=== PATIENT | female | born 1935 | race Hispanic/Latino ===

== ENCOUNTER 2017-08-05 15:24 | Observation (INO) | payer BC, MEDICARE, OTHER ==
[2017-08-05 15:38] VITALS: BMI 24.7
[2017-08-05 16:44] LABS: BASO # 0.1 K/uL (0.0-0.2); BASO % 0.4 % (0.0-2.0); EOS # 0.1 K/uL (0.0-0.7); EOS % 0.7 % (0.0-4.0); LYMPH # 2.3 K/uL (1.0-4.3); LYMPH % 17.3 % (20.0-40.0); MEAN CELL VOLUME 96.8 fL (81.0-99.0); MEAN CORPUSCULAR HEMOGLOBIN 31.4 pg (27.0-31.0); MEAN CORPUSCULAR HGB CONC 32.4 g/dL (33.0-37.0); MEAN PLATELET VOLUME 10.7 fL (7.2-11.7); MONO % 7.6 % (0.0-10.0); RED CELL DISTRIBUTION WIDTH 13.3 % (11.5-14.5); WHITE BLOOD COUNT 13.3 K/uL (4.8-10.8)
--- NOTE | 2017-08-05 16:56 | C.PDOC ---
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 As per pt, s/p colonoscopy yesterday with cecal polyp removal by . Pt sts, " was fine right after the procedure. Today AM, went to [employer] when noticed massive bleed". Pt also reports, (+) weak, dizziness. At present time, pt denies active bleeding. Otherwise, denies fever, chills, CP, SOB, dyspnea, diaphoresis, palpitation, abd. pain, N/V, back pain. Ambulate to ED for evaluation, not in nay apparent distress. Time Seen by Provider: 08/05/17 16:16 Chief Complaint (Nursing): GI Problem History Per: Patient Past Medical History Reviewed: Historical Data, Nursing Documentation, Vital Signs Vital Signs: Last Vital Signs Temp 97.2 F L 08/05/17 15:38 Pulse 67 08/05/17 15:38 Resp 18 08/05/17 15:38 BP 116/72 08/05/17 15:38 Pulse Ox 97 08/05/17 17:20 - Medical History PMH: Arthritis, Depression, HTN, Hypercholesterolemia, Pancreatitis (pancreatic cyst resected, 2007) Denies: HIV, Chronic Kidney Disease - [facility] Procedures INJECT/INFUSE NEC (08/20/14) OCCUPATIONAL THERAPY (07/26/14) PHYSICAL THERAPY NEC (07/26/14) RECREATIONAL THERAPY (07/26/14) Family History: States: Unknown Family Hx - Social History Hx Alcohol Use: No Hx Substance Use: No - Immunization History Hx Tetanus Toxoid Vaccination: No Hx Influenza Vaccination: Yes Hx Pneumococcal Vaccination: No Review Of Systems Except As Marked, All Systems Reviewed And Found Negative. Constitutional: Negative for: Fever, Chills ENT: Negative for: Ear Pain, Throat Pain Cardiovascular: Positive for: Light Headedness. Negative for: Chest Pain Respiratory: Negative for: Cough Gastrointestinal: Positive for: Rectal Pain, Other (bleeding). Negative for: Nausea, Vomiting, Abdominal Pain Genitourinary: Negative for: Dysuria, Incontinence Musculoskeletal: Negative for: Neck Pain, Back Pain Skin: Negative for: Rash Neurological: Positive for: Dizziness. Negative for: Weakness, Numbness, Altered Mental Status Physical Exam - Physical Exam Appears: Well, Non-toxic, No Acute Distress Skin: Normal Color, Warm, Dry, No Rash Eye(s): bilateral: PERRL Nose: No Flaring, No Discharge Oral Mucosa: Moist Throat: No Drooling Neck: Trachea Midline, Supple Cardiovascular: Rhythm Regular, No Murmur, No JVD Respiratory: No Decreased Breath Sounds, No Accessory Muscle Use, No Rales, No Rhonchi Gastrointestinal/Abdominal: Soft, No Tenderness, No Distention, No Guarding Rectal: Rectal Tone (normal), Other (no active bleeding noted, no lesion) Back: No CVA Tenderness Extremity: Normal ROM, No Deformity, No Swelling Neurological/Psych: Oriented x3, Normal Speech ED Course And Treatment - Laboratory Results Result Diagrams: 08/05/17 16:41 08/05/17 16:41 ECG: Interpreted By Me, Viewed By Me Interpretation Of ECG: SR@63/min, NAD, T wave inversion in AVF, T5, prolong QT, no acute ST-T changes. O2 Sat by Pulse Oximetry: 97 Pulse Ox Interpretation: Normal Progress Note: Case discussed with , OBS admission with consult of recommend now. Blood worlk review and appears normal, no evidence of anemia. case discussed with Med-on-capp and admission arranged to OBS/med-surg. Disposition - Disposition Disposition: HOSPITALIZED Disposition Time: 17:35 Condition: STABLE Forms: [facility] (Norwegian) - Clinical Impression Clinical Impression: Rectal bleeding, Complication of procedure, S/P colonoscopic polypectomy
[2017-08-05 17:03] LABS: ALKALINE PHOSPHATASE 62 U/L (38-126); ALT/SGPT 34 U/L (9-52); AST/SGOT 25 U/L (14-36); BILIRUBIN,TOTAL 0.4 mg/dL (0.2-1.3); BLOOD UREA NITROGEN 15 mg/dL (7-17); CALCIUM 8.3 mg/dl (8.6-10.4); CARBON DIOXIDE 23 mmol/L (22-30); CHLORIDE 103 mmol/L (98-107); GFR AFRICAN-AMERICAN > 60; GLUCOSE,RANDOM 130 mg/dL (65-105); POTASSIUM 3.7 mmol/L (3.6-5.2); SODIUM 137 mmol/L (132-148); TOTAL PROTEIN 7.6 g/dL (6.3-8.3)
[2017-08-05 17:05] LABS: INR 1.1
[2017-08-05] MEDS ORDERED: Moxifloxacin IV 400mg/250ml NS 400 MG/250 ML BAG IVPB SCH (19:00)
[2017-08-05] MEDS ORDERED: Moxifloxacin IV 400mg/250ml NS 0 MG/0 ML BAG IVPB ONE (19:22)
[2017-08-05] MEDS ORDERED: Moxifloxacin IV 400mg/250ml NS 400 MG/250 ML BAG IVPB ONE (19:24)
--- NOTE | 2017-08-05 19:56 | CP.PCM.CON ---
History of Present Illness - History of Present Illness History of Present Illness: INFECTIOUS DISEASE CONSULT; DICTATED; DICT. NO; [id number]. CASE DISCUSSED WITH STAFF. Past Patient History - Infectious Disease Hx of Infectious Diseases: None - Past Medical History & Family History Past Medical History?: Yes - Past Social History Smoking Status: Former Smoker - CARDIAC Hx Hypercholesterolemia: Yes Hx Hypertension: Yes - PULMONARY Hx Respiratory Disorders: No - NEUROLOGICAL Hx Neurological Disorder: No - HEENT Other/Comment: wears eye glasses - RENAL Hx Chronic Kidney Disease: No - ENDOCRINE/METABOLIC Hx Endocrine Disorders: Yes Hx Diabetes Mellitus Type 2: Yes - HEMATOLOGICAL/ONCOLOGICAL Hx Human Immunodeficiency Virus (HIV): No - INTEGUMENTARY Hx Dermatological Problems: No - MUSCULOSKELETAL/RHEUMATOLOGICAL Hx Arthritis: Yes - GASTROINTESTINAL Hx Pancreatitis: Yes (pancreatic cyst resected, 2007) - GENITOURINARY/GYNECOLOGICAL Hx Genitourinary Disorders: No - PSYCHIATRIC Hx Depression: Yes Hx Substance Use: No - SURGICAL HISTORY Hx Surgeries: Yes Hx Orthopedic Surgery: Yes (right TKR) 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 - ANESTHESIA Hx Anesthesia: No Hx Anesthesia Reactions: No Meds Allergies/Adverse Reactions: Allergies Allergy/AdvReac Type Severity Reaction Status Date / Time azithromycin [From Zithromax] Allergy Verified 08/05/17 15:37 codeine Allergy Verified 08/05/17 15:37 erythromycin base Allergy Verified 08/05/17 15:37 Penicillins Allergy Verified 08/05/17 15:37 - Medications Medications: Current Medications Citalopram Hydrobromide (Celexa) 10 mg PO DAILY [facility] Home Med (Simvastatin [Simvastatin]) 20 mg PO [facility] Moxifloxacin HCl (Avelox Iv 400mg/250ml Ns) 400 mg in 250 mls @ 167 mls/hr IVPB Q24H [facility] Last Admin: 08/05/17 19:20 Dose: 167 mls/hr Ondansetron HCl (Zofran Inj) 4 mg IVP Q6 PRN PRN Reason: Nausea/Vomiting Results - Vital Signs Recent Vital Signs: Last Vital Signs Temp 98.1 F 08/05/17 19:05 Pulse 66 08/05/17 19:05 Resp 16 08/05/17 19:05 BP 123/68 08/05/17 19:05 Pulse Ox 97 08/05/17 19:05 - Labs Result Diagrams: 08/05/17 16:41 11/18/17 16:41 Labs: Laboratory Results - last 24 hr 08/05/17 08/05/17 08/05/17 16:41 16:41 16:41 WBC 13.3 H RBC 3.82 Hgb 12.0 Hct 37.0 MCV 96.8 MCH 31.4 H MCHC 32.4 L RDW 13.3 Plt Count 185 MPV 10.7 Neut % (Auto) 74.0 Lymph % (Auto) 17.3 L [place] % (Auto) 7.6 Eos % (Auto) 0.7 Baso % (Auto) 0.4 Neut # 9.8 H Lymph # 2.3 [place] # 1.0 H Eos # 0.1 Baso # 0.1 PT 12.2 INR 1.1 APTT 29 Sodium 137 Potassium 3.7 Chloride 103 Carbon Dioxide 23 Anion Gap 14 BUN 15 Creatinine 0.9 Est GFR ( Amer) > 60 Est GFR (Non-Af Amer) > 60 Random Glucose 130 H Calcium 8.3 L Total Bilirubin 0.4 AST 25 ALT 34 Alkaline Phosphatase 62 Troponin I < 0.0120 Total Protein 7.6 Albumin 3.8 Globulin 3.8 Albumin/Globulin Ratio 1.0
[2017-08-05] MEDS ORDERED: Amikacin Sulfate 500 MG in Sodium Chloride 0.9% 250 ML IVPB ONE (20:00)
[2017-08-06 00:42] VITALS: RESP 20
--- NOTE | 2017-08-06 06:24 | CON ---
INFECTIOUS DISEASE CONSULTATION REQUESTED BY: Dr. Manzanares. REASON FOR CONSULTATION: Multiple drug allergies, rectal bleeding, status post colonoscopy 08/04/2017 HISTORY OF PRESENT ILLNESS: Patient is an 81-year-old female with a history of hypertension, hypercholesterolemia, arthritis, history of pancreatic cyst resected in 2007 and depression, who was admitted to [facility] via the emergency room because of an episode of rectal bleeding prior to admission. As per patient, the patient had a colonoscopy done yesterday with large cecal polyp removed by Dr. Grant, ball shagger. The patient states she was fine right after the procedure, but this morning when she went to [employer], she noticed an urge of going to the bathroom and had a massive bleed. Patient also reports generalized weakness and dizziness at the time. The patient denies any further bleeding, but does complain of pain right lower quadrant. The patient complains of some chills and feeling cold at present, but denies any feverish feeling, chest pain, shortness of breath, dyspnea, diaphoresis or palpitations. Patient denies any nausea or vomiting, any back pain. On admission, she was found to have a blood pressure of 116/72, with respirations of 18 and pulse of 67, pulse ox was found to be 97%. Patient was hydrated and IV antibiotics were started as noted. Patient presently on IV Avelox 400 mg once a day daily as patient was found to have leukocytosis of 13.3. Hemoglobin at present was 12.0 and 37.0 with normal coagulation profile. The patient has multiple drug allergies including PENICILLIN, ZITHROMAX, CODEINE AND ERYTHROMYCIN BASE. Infectious disease consultation requested by Dr. Chelsea Manzanares for appropriate therapy. Patient presently denies any nauseous feeling or vomiting. PAST MEDICAL HISTORY: As above, history of hypertension and hypercholesterolemia, depression, arthritis, history of pancreatic cyst, which was resected in 2007, denies HIV or chronic kidney disease. SURGICAL HISTORY: As above, history of pancreatic cyst dissected in 2007, status post colonoscopy, and cecal polyp removal at that time on 08/04/2017 in [facility]. FAMILY HISTORY: Unknown. SOCIAL HISTORY: She denies alcohol or substance abuse. IMMUNIZATIONS: She is up-to-date on influenza vaccination. Denies history of pneumococcal vaccination, or tetanus toxoid vaccination. REVIEW OF SYSTEMS: RESPIRATORY: Denies any shortness of breath or cough. CARDIOVASCULAR: Denies any chest pain, palpitation, positive for some lightheadedness, but denies any chest pain. : Unremarkable. No dysuria. No incontinence. SKIN: Negative for rash. GANG SAWYER: Positive for dizziness. Negative for any altered mental status. PHYSICAL EXAMINATION GENERAL: Patient is awake, alert, not in any acute distress. Complaining of some mild discomfort right lower quadrant. VITAL SIGNS: HEENT: Blood pressure 115/72, respirations 18, pulse 67, temperature 97.2, pulse ox is 97%. HEENT: Pupils equal, reactive to light and accommodation. Extraocular movements are full. Fundus is negative. Sclerae nonicteric. Conjunctivae normal. JVP not elevated. NECK: Appears to be supple. CARDIOVASCULAR: S1, S2, sinus tachycardia. No murmur or gallop. LUNGS: Fair air entry. ABDOMEN: Soft, mild tenderness on deep palpation in the right lower quadrant and right flank. No distention, no guarding. RECTAL: Deferred. EXTREMITIES: No cyanosis, clubbing or edema. GANG SAWYER: No gross deficits, moves all extremities. LABORATORY DATA: WBC 13.2, H&H of 12.0 and 37, platelets fine 185, creatinine 0.9, BUN 15, sodium 137, potassium 3.7. IMPRESSION: 1. Rectal bleeding, status post colonoscopy, polypectomy 08/04/2017. 2. Leukocytosis most likely reactive, to rule out sepsis. 3. History of hypertension and hypercholesterolemia. 4. Depression. PLAN: 1. Izaguirre cultures. Continue IV moxifloxacin as ordered 400 mg once a day daily, will give a stat dose of amikacin 500 mg post blood cultures as ordered. 2. Followup CBC, H&H and IV fluids as per PMD. We will follow along with you. Thank you very much for allowing me to participate in the care of your patient. Naya Parks MD
[2017-08-06 07:56] LABS: BASO # 0.1 K/uL (0.0-0.2); BASO % 0.8 % (0.0-2.0); EOS # 0.2 K/uL (0.0-0.7); EOS % 2.8 % (0.0-4.0); HEMATOCRIT 30.4 % (34.0-47.0); LYMPH % 34.7 % (20.0-40.0); MEAN CELL VOLUME 95.3 fL (81.0-99.0); MEAN CORPUSCULAR HEMOGLOBIN 32.5 pg (27.0-31.0); MEAN PLATELET VOLUME 10.5 fL (7.2-11.7); MONO # 0.9 K/uL (0.0-0.8); MONO % 10.8 % (0.0-10.0); RED CELL DISTRIBUTION WIDTH 12.9 % (11.5-14.5); WHITE BLOOD COUNT 8.6 K/uL (4.8-10.8)
[2017-08-06 08:21] LABS: BLOOD UREA NITROGEN 15 mg/dL (7-17); CALCIUM 8.1 mg/dl (8.6-10.4); CARBON DIOXIDE 28 mmol/L (22-30); CHLORIDE 103 mmol/L (98-107); CHOLESTEROL 171 mg/dL (0-199); GFR AFRICAN-AMERICAN > 60; GLUCOSE,RANDOM 90 mg/dL (65-105); POTASSIUM 3.7 mmol/L (3.6-5.2); SODIUM 136 mmol/L (132-148)
[2017-08-06 08:37] VITALS: BP 138/79; PULSE 73; TEMP 97.7; O2SAT 96
[2017-08-06 08:44] LABS: THYROID STIMULATING HORMONE 1.09 mIU/L (0.46-4.68)
[2017-08-06] MEDS ORDERED: Enoxaparin 40 mg Syringe SC SCH (10:45)
--- NOTE | 2017-08-06 10:47 | CP.PCM.CON ---
History of Present Illness - History of Present Illness History of Present Illness: Covering Dr Grant CC: Rectal Bleed HPI: 81 year old woman underwent Colonoscopy and polypectomy of large cecal polyp on 08/04, and did well after the procedure. She then passed large amount of blood per rectum at [employer] yesterday, then felt weak and dizzy and came to the ER. Hgb was 12, and patient was admitted for observation. She has not passed any further blood overnight, nor today. She denies abdominal pain, weakness, dizzines, dyspnea. Hgb today is 10. Patient called me this morning asking when she can be discharged. Patient denies ASA or NSAID use. Review of Systems - Constitutional Constitutional: Fatigue, Weakness. absent: Anorexia, Chills - EENT Eyes: absent: Change in Vision Ears: absent: Decreased Hearing - Breasts Breasts: Mass (Going for biopsy this week) - Cardiovascular Cardiovascular: absent: Chest Pain, Diaphoresis - Respiratory Respiratory: absent: Cough, Dyspnea - Gastrointestinal Gastrointestinal: Hematochezia. absent: Abdominal Pain, Dysphagia, Melena, Nausea, Vomiting - Genitourinary Genitourinary: absent: Difficulty Urinating - Musculoskeletal Musculoskeletal: absent: Back Pain - Neurological Neurological: Weakness. absent: Abnormal Hearing, Loss of Vision - Psychiatric Psychiatric: absent: Behavioral Changes, Confusion - Endocrine Endocrine: absent: Change in Body Appearance - Hematologic/Lymphatic Hematologic: absent: Easy Bleeding Past Patient History - Infectious Disease Hx of Infectious Diseases: None - Past Medical History & Family History Past Medical History?: Yes - Past Social History Smoking Status: Former Smoker Alcohol: Occasional - CARDIAC Hx Hypercholesterolemia: Yes Hx Hypertension: Yes - PULMONARY Hx Respiratory Disorders: No - NEUROLOGICAL Hx Neurological Disorder: No - HEENT Other/Comment: wears eye glasses - RENAL Hx Chronic Kidney Disease: No - ENDOCRINE/METABOLIC Hx Endocrine Disorders: Yes Hx Diabetes Mellitus Type 2: Yes - HEMATOLOGICAL/ONCOLOGICAL Hx Human Immunodeficiency Virus (HIV): No - INTEGUMENTARY Hx Dermatological Problems: No - MUSCULOSKELETAL/RHEUMATOLOGICAL Hx Falls: No - GASTROINTESTINAL Hx Pancreatitis: Yes (pancreatic cyst resected, 2007. 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 - ANESTHESIA Hx Anesthesia: No Hx Anesthesia Reactions: No Meds Allergies/Adverse Reactions: Allergies Allergy/AdvReac Type Severity Reaction Status Date / Time azithromycin [From Zithromax] Allergy Verified 08/05/17 15:37 codeine Allergy Verified 08/05/17 15:37 erythromycin base Allergy Verified 08/05/17 15:37 Penicillins Allergy Verified 08/05/17 15:37 - Medications Medications: Current Medications Citalopram Hydrobromide (Celexa) 10 mg PO DAILY [facility] Moxifloxacin HCl (Avelox Iv 400mg/250ml Ns) 400 mg in 250 mls @ 167 mls/hr IVPB Q24H [facility] Last Admin: 08/05/17 19:20 Dose: 167 mls/hr Ondansetron HCl (Zofran Inj) 4 mg IVP Q6 PRN PRN Reason: Nausea/Vomiting Pneumococcal Polyvalent Vaccine (Pneumovax 23 Vaccine) 0.5 ml IM .ONCE ONE Stop: 08/07/17 10:01 Rosuvastatin Calcium (Crestor) 5 mg PO HS [facility] Last Admin: 08/05/17 21:47 Dose: 5 mg Physical Exam - Constitutional Appears: Well, No Acute Distress - Head Exam Head Exam: ATRAUMATIC, NORMOCEPHALIC - Eye Exam Eye Exam: Normal appearance. absent: Scleral icterus - ENT Exam ENT Exam: Normal Exam - Neck Exam Neck exam: Positive for: Normal Inspection. Negative for: Thyromegaly - Respiratory Exam Respiratory Exam: Clear to Auscultation Bilateral - Cardiovascular Exam Cardiovascular Exam: REGULAR RHYTHM - GI/Abdominal Exam GI & Abdominal Exam: Normal Bowel Sounds, Soft. absent: Distended, Guarding, Mass, Tenderness - Rectal Exam Rectal Exam: Deferred - Extremities Exam Extremities exam: Positive for: normal inspection - Back Exam Back exam: NORMAL INSPECTION - Neurological Exam Neurological exam: Alert, Oriented x3 - Psychiatric Exam Psychiatric exam: Anxious, Normal Affect - Skin Skin Exam: Intact, Normal Color Results - Vital Signs Recent Vital Signs: Last Vital Signs Temp 97.7 F 08/06/17 08:35 Pulse 73 08/06/17 08:35 Resp 20 08/06/17 08:35 BP 138/79 08/06/17 08:35 Pulse Ox 96 08/06/17 08:35 - Labs Result Diagrams: 08/06/17 07:42 08/06/17 07:42 Labs: Laboratory Results - last 24 hr 08/05/17 08/05/17 08/05/17 16:41 16:41 16:41 WBC 13.3 H RBC 3.82 Hgb 12.0 Hct 37.0 MCV 96.8 MCH 31.4 H MCHC 32.4 L RDW 13.3 Plt Count 185 MPV 10.7 Neut % (Auto) 74.0 Lymph % (Auto) 17.3 L [place] % (Auto) 7.6 Eos % (Auto) 0.7 Baso % (Auto) 0.4 Neut # 9.8 H Lymph # 2.3 [place] # 1.0 H Eos # 0.1 Baso # 0.1 PT 12.2 INR 1.1 APTT 29 Sodium 137 Potassium 3.7 Chloride 103 Carbon Dioxide 23 Anion Gap 14 BUN 15 Creatinine 0.9 Est GFR ( Amer) > 60 Est GFR (Non-Af Amer) > 60 Random Glucose 130 H Hemoglobin A1c Calcium 8.3 L Total Bilirubin 0.4 AST 25 ALT 34 Alkaline Phosphatase 62 Troponin I < 0.0120 Total Protein 7.6 Albumin 3.8 Globulin 3.8 Albumin/Globulin Ratio 1.0 Triglycerides Cholesterol LDL Cholesterol Direct HDL Cholesterol TSH 3rd Generation 08/06/17 08/06/17 08/06/17 07:42 07:42 07:42 WBC 8.6 RBC 3.19 L Hgb 10.3 L Hct 30.4 L MCV 95.3 MCH 32.5 H MCHC 34.0 RDW 12.9 Plt Count 171 MPV 10.5 Neut % (Auto) 50.9 Lymph % (Auto) 34.7 [place] % (Auto) 10.8 H Eos % (Auto) 2.8 Baso % (Auto) 0.8 Neut # 4.4 Lymph # 3.0 [place] # 0.9 H Eos # 0.2 Baso # 0.1 PT INR APTT Sodium 136 Potassium 3.7 Chloride 103 Carbon Dioxide 28 Anion Gap 9 L BUN 15 Creatinine 0.8 Est GFR ( Amer) > 60 Est GFR (Non-Af Amer) > 60 Random Glucose 90 Hemoglobin A1c 6.2 Calcium 8.1 L Total Bilirubin AST ALT Alkaline Phosphatase Troponin I Total Protein Albumin Globulin Albumin/Globulin Ratio Triglycerides 88 Cholesterol 171 LDL Cholesterol Direct 103 HDL Cholesterol 46 TSH 3rd Generation 1.09 Assessment & Plan (1) Rectal bleeding Assessment and Plan: 1 episode in past 24 hours. S/P Colon polypectomy. Clinically stable. Would not anticoagulate for DVT prophylaxis as the bleed is a contraindication to this. Lovenox discontinued, and discussed with RN Patient is stable for discharge home, from a GI point of view, and should follow up with Dr Grant Status: Acute (2) Anemia Assessment and Plan: Due to acute blood loss. No further bleeding witnessed. Follow up CBC as outpatient Status: Acute Priority: High - Date & Time Date: 08/06/17
[2017-08-06] MEDS ORDERED: Pneumococcal 23-Valent Vaccine IM ONE (14:15)
--- NOTE | 2017-08-07 17:43 | CARD ---
APPROVED REPORT EKG Measurement Heart [id number] <Conclusion> Normal sinus rhythm Nonspecific T wave abnormality Prolonged QT Abnormal ECG
== END 2017-08-06 14:24 | disposition home or self-care (01) ==
LOC: C.ER 15:24 → C.9E 17:36 → C.3T 18:47
PROVIDERS: ADMIT Internal Medicine; ATTEND Internal Medicine
DX: K62.5 Hemorrhage of anus and rectum (principal); D64.9 Anemia, unspecified
CPT/HCPCS: 36415; 80048; 80053; 80061; 83036; 84443; 84484; 85025; 85027; 85610; 85730; 87040; 90732; 96374; 99285; C9113; G0009; G0378; J2280